=== PATIENT | male | born 1990 | race African-American/Black ===

== ENCOUNTER 2016-10-27 15:38 | Emergency (ER) | payer OTHER ==
[~2016-10-27] VITALS: Ht 180.3 cm; Wt 90.0 kg
[2016-10-27 15:40] VITALS: BP 141/89; PULSE 84; RESP 14; TEMP 97.9; O2SAT 97
[2016-10-27] MEDS ORDERED: CEPH-460 PO (16:53)
--- NOTE | 2016-10-27 16:58 | PD ---
HPI Chief Complaint: Complaint Time Seen by Provider: 16:54 Travel History International Travel<30 days: No Contact w/Intl Traveler<30days: No Traveled to known affect area: No History of Present Illness HPI 26-year-old male that presents to the ED for evaluation of bumps to his penis. Per patient she's had this for the past couple days and he was concerned. Per patient he is also been concerned that he's doesn't get erections as he used to. Per patient he gets checked every year for STDs and his eye was be negative. Per patient he does have sex with multiple partners. He does not always use protection. He denies any other medical problem. Denies any dysuria polyuria. No pus. No allergies to medication. No chest pain or shortness of breath. PFSH Past Medical History Medical History: Denies Significant Hx Social History Alcohol Use: Yes Tobacco Use: Yes Substance Use: No Allergies-Medications (Allergen,Severity, Reaction): Coded Allergies: No Known Allergies (Unverified , 10/27/16) Reported Meds & Prescriptions Reported Meds & Active Scripts Active No Active Prescriptions or Reported Medications Review of Systems Except as stated in HPI: all other systems reviewed are Neg Physical Exam Narrative GENERAL: SKIN: Warm and dry. Genital exam: Done with female nurse present. Patient has 2 very small nontender lesions to the right shaft of the penis. Appear to follow the hair follicles. No purulence no mass or pain. No vesicle. No sign of infection. No obvious testicular mass or deformity noted. Patient is circumcised. HEAD: Atraumatic. Normocephalic. EYES: Pupils equal and round. No scleral icterus. No injection or drainage. ENT: No nasal bleeding or discharge. Mucous membranes pink and moist. NECK: Trachea midline. No JVD. CARDIOVASCULAR: Regular rate and rhythm. RESPIRATORY: No accessory muscle use. Clear to auscultation. Breath sounds equal bilaterally. GASTROINTESTINAL: Abdomen soft, non-tender, nondistended. Hepatic and splenic margins not palpable. MUSCULOSKELETAL: Extremities without clubbing, cyanosis, or edema. No obvious deformities. NEUROLOGICAL: Awake and alert. No obvious cranial nerve deficits. Motor grossly within normal limits. Five out of 5 muscle strength in the arms and legs. Normal speech. PSYCHIATRIC: Appropriate mood and affect; insight and judgment normal. Data Data Last Documented VS Vital Signs Date Time Temp Pulse Resp B/P Pulse Ox O2 Delivery O2 Flow Rate FiO2 10/27/16 15:40 97.9 84 14 141/89 97 MDM Medical Decision Making Medical Screen Exam Complete: Yes Emergency Medical Condition: Yes Medical Record Reviewed: Yes Differential Diagnosis Lesion versus STD versus normal exam Narrative Course 26-year-old male that presents to the ED for violation bumps to his penis. Per patient she's had this for 3 days. Patient was properly examined and was found to have no signs of acute medical distress. He is bumps that he is talking about appear to be normal and not infectious but do appear to follow the hair follicles. I'm concerned more for ingrown hairs tend any sign of STD. I do recommend to the patient that he follows with the health Department for STD check. He is agreeable with this. In regards to his erection issues I do recommend the patient calms down on his alcohol and smoking as this will likely improve his symptoms. Unfortunately there is no much I can do for this problem in the ED but he can follow with urologist if this does not improve. He agrees and understands. Patient was given a position for Keflex to rule out ingrown hair. See ED worsening symptoms. Diagnosis Primary Impression: Ingrown hair Patient Instructions: General Instructions Additional Instructions: Take medication as prescribed. Cut down on your drinking and smoking. F/u with health department for STD testing. See ED if worst. ALways use protection. F/u with PCP if erections do not improve. Med/Other Pt SpecificInfo: Prescription(s) given Scripts Cephalexin (Keflex)500 Mg Obu843 Mg PO Q6H 10 Days Prov:Rosy Alvarez MD 10/27/16 Disposition: 01 DISCHARGE HOME Condition: Stable Crescencio Adams Oct 27, 2016 16:58
== END 2016-10-27 17:35 | disposition home or self-care (01) ==
LOC: NEPB 15:38
DX: Z72.0 Tobacco use (principal); L73.1 Pseudofolliculitis barbae
CPT/HCPCS: 99283